=== PATIENT | female | born 1970 | race Hispanic/Latino ===

== ENCOUNTER 2023-03-25 01:27 | Emergency (ER) | payer OTHER ==
[~2023-03-25] VITALS: Ht 147.3 cm; Wt 65.8 kg
[2023-03-25] MEDS ORDERED: KETOROLAC 30MG VIAL (30MG/ML) ONE (01:33)
[2023-03-25] MEDS ORDERED: KETOROLAC 60 MG VIAL (30MG/ML) IM ONE (02:00)
[2023-03-25 02:40] VITALS: BP 167/81; PULSE 81; RESP 16; O2SAT 98
== END 2023-03-25 02:40 | disposition home or self-care (01) ==
LOC: EDH 01:27
DX: S93.402A Sprain of unspecified ligament of left ankle, initial encounter (principal); V89.2XXA Person injured in unspecified motor-vehicle accident, traffic, initial encounter; Y93.89 Activity, other specified; Y92.89 Other specified places as the place of occurrence of the external cause; Y99.8 Other external cause status
CPT/HCPCS: 99284; 73610; 73562; 96372; J1885 ×2